=== PATIENT | female | born 1960 | race Caucasian/White ===

== ENCOUNTER 2020-01-13 23:42 | Emergency (ER) | payer MEDICAID ==
[2020-01-13 23:55] VITALS: BP 128/74; PULSE 84
--- NOTE | 2020-01-14 00:39 | EDM.PDOC ---
ED HPI GENERAL MEDICAL PROBLEM - General Chief Complaint: Lower Extremity Injury/Pain Stated Complaint: right foot Time Seen by Provider: 01/14/20 00:00 Source of Information: Reports: Patient History Limitations: Reports: No Limitations - History of Present Illness INITIAL COMMENTS - FREE TEXT/NARRATIVE: Patient presented to the ED because of a rt ankle/foot injury. She apparently missed a step and twisted her rt foot/ankle. she c//o 6/10 pain worse on ambulation. Treatments [employer]IST: Reports: Other (see below) Other Treatments [employer]GU[employer] SPECIALIST: ice right foot/ankle Pain Score (Numeric/FACES): 8 - Related Data Allergies Allergy/AdvReac Type Severity Reaction Status Date / Time minocycline [From Minocin] Allergy Rash Verified 01/13/20 23:51 Past Medical History HEENT History: Reports: Impaired Vision Other HEENT History: glasses Respiratory History: Reports: Asthma Genitourinary History: Reports: Acute Renal Failure Other Genitourinary History: Donated left kidney 9 yrs ago. Stage 3 kidney failure, appt in feb 2020. Musculoskeletal History: Reports: Arthritis Other Musculoskeletal History: fx toe, arthritis left foot/ bilat hands Endocrine/Metabolic History: Reports: Hypothyroidism - Infectious Disease History Infectious Disease History: Reports: None - Past Surgical History HEENT Surgical History: Reports: None Female Surgical History: Reports: None Endocrine Surgical History: Reports: None Musculoskeletal Surgical History: Reports: None Dermatological Surgical History: Reports: None Social & Family History - Tobacco Use Tobacco Use Status *Q: Never Tobacco User - Caffeine Use Caffeine Use: Reports: Soda - Alcohol Use Date of Last Drink: 01/22/07 - Recreational Drug Use Recreational Drug Use: No Review of Systems - Review of Systems Review Of Systems: See Below Constitutional: Reports: No Symptoms Ears: Reports: No Symptoms Nose: Reports: No Symptoms Mouth/Throat: Reports: No Symptoms Respiratory: Reports: No Symptoms Cardiovascular: Reports: No Symptoms GI/Abdominal: Reports: No Symptoms Genitourinary: Reports: No Symptoms Musculoskeletal: Reports: Joint Pain, Joint Swelling Skin: Reports: No Symptoms ED EXAM, GENERAL - Physical Exam Exam: See Below Exam Limited By: No Limitations General Appearance: Alert, No Apparent Distress Ears: Normal External Exam, Normal Canal Nose: Normal Inspection, Normal Mucosa, No Blood Throat/Mouth: Normal Inspection, Normal Lips, Normal Teeth Head: Atraumatic, Normocephalic Neck: Normal Inspection, Supple, Non-Tender, Full Range of Motion Respiratory/Chest: No Respiratory Distress, Lungs Clear, Normal Breath Sounds Cardiovascular: Normal Peripheral Pulses, Regular Rate, Rhythm, No Edema, No Gallop GI/Abdominal: Normal Bowel Sounds, Soft, Non-Tender Back Exam: Normal Inspection, Full Range of Motion Extremities: Other (tenderness and swelling lateral aspect of the rt foot and mid ankle) Course - Vital Signs Text/Narrative:: xray RT foot/ankle-see result Last Recorded V/S: Last Vital Signs Temp 36.7 C 01/13/20 23:52 Pulse 84 01/13/20 23:52 Resp 20 01/13/20 23:52 BP 128/74 01/13/20 23:52 Pulse Ox 99 01/13/20 23:52 Departure - Departure Time of Disposition: 12:40 Disposition: Home, Self-Care 01 Condition: Good Clinical Impression: Ankle sprain, Foot sprain - Discharge Information Instructions: Ankle Sprain, [id number], Foot Sprain Referrals: PCP,None [Primary Care Provider] - Forms: ED Department Discharge Additional Instructions: please read discharge instructions on ankle sprain and foot sprain apply ice,elevate tylenol 1000 mg every 8 hours as needed for pain use your crutches at all times until your pain is gone we will call you if there is any change on the xray reading Sepsis Event Note (ED) - Evaluation Sepsis Screening Result: No Definite Risk
== END 2020-01-14 01:05 | disposition home or self-care (01) ==
LOC: FB.ED 23:42
DX: S93.401A Sprain of unspecified ligament of right ankle, initial encounter (principal); S93.601A Unspecified sprain of right foot, initial encounter; J45.909 Unspecified asthma, uncomplicated; Z88.1 Allergy status to other antibiotic agents; X50.1XXA Overexertion from prolonged static or awkward postures, initial encounter
CPT/HCPCS: 73610-RT; 73630-RT; 99282; 99283-25

== ENCOUNTER 2021-02-10 19:25 | Emergency (ER) | payer MEDICAID ==
[2021-02-10] MEDS: Sodium Chloride 0.9% 10 ML Syringe FLUSH PRN ×2 (19:46→21:06)
[2021-02-10] MEDS ORDERED: methylPREDNISolone Sodium Succinate 125 MG/2 ML SDV IM STA (20:46)
[2021-02-10] MEDS ORDERED: Albuterol/Ipratropium 3.0-0.5 MG/3 ML Neb Soln NEB STA (20:46)
[2021-02-10] MEDS ORDERED: methylPREDNISolone Sodium Succinate 125 MG/2 ML SDV IVPUSH STA (21:01)
[2021-02-10] MEDS ORDERED: Codeine/guaiFENesin 10-100 MG/5 ML Syrup 5 ML Cup PO STA (21:43)
[2021-02-10] MEDS ORDERED: Azithromycin 500 MG Tab PO STA (21:43)
[2021-02-10 21:44] LABS: CORONAVIRUS COVID-19 NAA NEGATIVE (NEGATIVE)
[2021-02-10] MEDS ORDERED: Oseltamivir 75 MG Cap PO STA (21:48)
--- NOTE | 2021-02-10 21:55 | EDM.PDOC ---
ED HPI GENERAL MEDICAL PROBLEM - General Chief Complaint: General Stated Complaint: CHEST PAINS, COUGH, BACK PAIN Time Seen by Provider: 02/10/21 19:59 Source of Information: Reports: Patient, Family History Limitations: Reports: No Limitations - History of Present Illness INITIAL COMMENTS - FREE TEXT/NARRATIVE: Patient presented to the ED because of coughing, dyspnea malaise,headache for 2 days. There is no fever but has chills. No N/V/D. She was seen at the [facility] today and was sent to the ED for evaluation because of an elevated creatinine of 1.3 Chest Pain Score (Numeric/FACES): 2 - Related Data Allergies Allergy/AdvReac Type Severity Reaction Status Date / Time minocycline [From Minocin] Allergy Rash Verified 02/10/21 20:37 Home Meds: Home Meds Azithromycin [Zithromax] 500 mg PO DAILY #5 tab 02/10/21 [Rx] Levothyroxine Sodium [Synthroid] 25 mcg PO ACBREAKFAST 02/10/21 [History] Montelukast [Singulair] 10 mg PO DAILY 02/10/21 [History] Oseltamivir [Tamiflu] 75 mg PO BID #10 cap 02/10/21 [Rx] Pravastatin [Pravachol] 40 mg PO DAILY 02/10/21 [History] predniSONE [Prednisone] 40 mg PO BID #10 tablet 02/10/21 [Rx] Past Medical History HEENT History: Reports: Impaired Vision Other HEENT History: glasses Respiratory History: Reports: Asthma Genitourinary History: Reports: Acute Renal Failure Other Genitourinary History: Donated left kidney 9 yrs ago. Stage 3 kidney failure, appt in feb 2020. Musculoskeletal History: Reports: Arthritis Other Musculoskeletal History: fx toe, arthritis left foot/ bilat hands Endocrine/Metabolic History: Reports: Hypothyroidism - Infectious Disease History Infectious Disease History: Reports: None - Past Surgical History HEENT Surgical History: Reports: None Female Surgical History: Reports: None Endocrine Surgical History: Reports: None Musculoskeletal Surgical History: Reports: None Dermatological Surgical History: Reports: None Social & Family History - Tobacco Use Tobacco Use Status *Q: Unknown Ever Used Tobacco - Caffeine Use Caffeine Use: Reports: Coffee ED ROS GENERAL - Review of Systems Review Of Systems: See Below Constitutional: Reports: Chills, Malaise HEENT: Reports: No Symptoms Respiratory: Reports: Shortness of Breath, Cough Cardiovascular: Reports: No Symptoms Endocrine: Reports: No Symptoms GI/Abdominal: Reports: No Symptoms : Reports: No Symptoms Musculoskeletal: Reports: No Symptoms Skin: Reports: No Symptoms Neurological: Reports: No Symptoms Psychiatric: Reports: No Symptoms Hematologic/Lymphatic: Reports: No Symptoms ED EXAM, GENERAL - Physical Exam Exam: See Below Exam Limited By: No Limitations General Appearance: Alert, No Apparent Distress Eye Exam: Bilateral Eye: PERRL Ears: Normal External Exam, Normal Canal Nose: Normal Inspection, Normal Mucosa, No Blood Throat/Mouth: Normal Inspection, Normal Lips, Normal Teeth, Normal Oropharynx, Normal Voice Head: Atraumatic, Normocephalic Neck: Normal Inspection, Supple, Non-Tender, Full Range of Motion Respiratory/Chest: No Respiratory Distress, Rhonchi, Wheezing Cardiovascular: Normal Peripheral Pulses, Regular Rate, Rhythm, No Edema, No G allop, No JVD, No Murmur, No Rub GI/Abdominal: Normal Bowel Sounds, Soft, Non-Tender, No Organomegaly, No Distention, No Abnormal Bruit Back Exam: Normal Inspection, Full Range of Motion Extremities: Normal Inspection, Normal Range of Motion, Non-Tender, No Pedal Edema, Normal Capillary Refill Neurological: Alert, Oriented, CN II-XII Intact, Normal Cognition Psychiatric: Normal Affect, Normal Mood Skin Exam: Warm Course - Vital Signs Text/Narrative:: Lab result was reviewed and discussed with [atient Duoneb x1 Solumedrol 125 mg X 1 Robitussin AC 10 ml PO x1 Tamiflu 75 mg PO x1 Zithromax 500 mg PO x1 Last Recorded V/S: Last Vital Signs Temp 36.6 C 02/10/21 19:26 Pulse 77 02/10/21 21:20 Resp 16 02/10/21 21:20 BP 145/86 H 02/10/21 21:20 Pulse Ox 100 02/10/21 21:20 - Orders/Labs/Meds Orders: Active Orders 24 hr Category Date Time Status RT Aerosol Therapy [RC] ASDIRECTED Care 02/10/21 20:47 Active CXR [Chest 1V Frontal] [CR] Stat Exams 02/10/21 20:00 Taken Sodium Chloride 0.9% [Saline Flush] Med 02/10/21 20:00 Active 10 ml FLUSH ASDIRECTED PRN Saline Lock Insert [OM.PC] Routine Oth 02/10/21 20:00 Ordered EKG 12 Lead [EK] Routine Ther 02/10/21 20:00 Ordered Medication Orders Sodium Chloride (Sodium Chloride 0.9% 10 Ml Syringe) 10 ml FLUSH ASDIRECTED PRN PRN Reason: Keep Vein Open Last Admin: 02/10/21 21:06 Dose: 10 ml Documented by: Admin: 02/10/21 19:46 Dose: 10 ml Documented by: BELKIS Labs: Laboratory Tests 02/10/21 02/10/21 02/10/21 Range/Units 19:43 20:18 20:18 WBC 7.8 (3.0-10.3) x10-3/uL RBC 4.38 (3.60-5.20) x10(6)uL Hgb 13.4 (11.4-15.5) g/dL Hct 40.0 (34.2-48.2) % MCV 91.3 (76.7-100.5) fL MCH 30.7 (23.9-33.9) pg MCHC 33.6 (31.9-34.8) g/dL RDW 12.5 (12.3-16.5) % Plt Count 295 (151-488) x10(3)uL MPV 7.8 (7.1-12.4) fL Add Manual Diff Yes Neutrophils % (Manual) 80 (46-82) % Band Neutrophils % 3 (0-6) % Lymphocytes % (Manual) 10 L (13-37) % Monocytes % (Manual) 5 (4-12) % Eosinophils % (Manual) 2 (0-5) % Sodium 140 (135-145) mmol/L Potassium 3.8 (3.5-5.3) mmol/L Chloride 103 (100-110) mmol/L Carbon Dioxide 28 (21-32) mmol/L BUN 11 (7-18) mg/dL Creatinine 1.2 H (0.55-1.02) mg/dL Est Cr Clr Drug Dosing 48.48 mL/min Estimated GFR (MDRD) 46 L (>60) BUN/Creatinine Ratio 9.2 (9-20) Glucose 122 H (80-116) mg/dL Calcium 8.9 (8.6-10.2) mg/dL Total Bilirubin 0.7 (0.1-1.3) mg/dL AST 17 (5-25) IU/L ALT 31 (12-36) U/L Alkaline Phosphatase 64 (56-112) IU/L Troponin I (4.0-60.3) pg/mL NT-Pro-B Natriuret Pep (<=125) pg/mL Total Protein 7.8 (6.0-8.0) g/dL Albumin 4.1 (3.2-4.6) g/dL Globulin 3.7 g/dL Albumin/Globulin Ratio 1.1 Urine Color Yellow (YELLOW) Urine Appearance Slightly cloudy (CLEAR) Urine pH 5.0 (5.0-6.5) Ur Specific Odd 1.025 (1.010-1.025) Urine Protein Negative (NEGATIVE) mg/dL Urine Glucose (UA) Normal (NORMAL) mg/dL Urine Ketones Negative (NEGATIVE) mg/dL Urine Occult Blood Negative (NEGATIVE) Urine Nitrite Negative (NEGATIVE) Urine Bilirubin Negative (NEGATIVE) Urine Urobilinogen Normal (NEGATIVE) mg/dL Ur Leukocyte Esterase Negative (NEGATIVE) Urine RBC 0-5 (0-5) Urine WBC 0-5 (0-5) Ur Squamous Epith Cells Occasional (NS,R,O) Urine Bacteria Few H (NS) Influenza Type A RNA (NEGATIVE) Influenza Type B RNA (NEGATIVE) SARS-CoV-2 RNA (MELODY) (NEGATIVE) 02/10/21 02/10/21 02/10/21 Range/Units 20:18 20:18 21:01 WBC (3.0-10.3) x10-3/uL RBC (3.60-5.20) x10(6)uL Hgb (11.4-15.5) g/dL Hct (34.2-48.2) % MCV (76.7-100.5) fL MCH (23.9-33.9) pg MCHC (31.9-34.8) g/dL RDW (12.3-16.5) % Plt Count (151-488) x10(3)uL MPV (7.1-12.4) fL Add Manual Diff Neutrophils % (Manual) (46-82) % Band Neutrophils % (0-6) % Lymphocytes % (Manual) (13-37) % Monocytes % (Manual) (4-12) % Eosinophils % (Manual) (0-5) % Sodium (135-145) mmol/L Potassium (3.5-5.3) mmol/L Chloride (100-110) mmol/L Carbon Dioxide (21-32) mmol/L BUN (7-18) mg/dL Creatinine (0.55-1.02) mg/dL Est Cr Clr Drug Dosing mL/min Estimated GFR (MDRD) (>60) BUN/Creatinine Ratio (9-20) Glucose (80-116) mg/dL Calcium (8.6-10.2) mg/dL Total Bilirubin (0.1-1.3) mg/dL AST (5-25) IU/L ALT (12-36) U/L Alkaline Phosphatase (56-112) IU/L Troponin I < 4.0 L (4.0-60.3) pg/mL NT-Pro-B Natriuret Pep 82 (<=125) pg/mL Total Protein (6.0-8.0) g/dL Albumin (3.2-4.6) g/dL Globulin g/dL Albumin/Globulin Ratio Urine Color (YELLOW) Urine Appearance (CLEAR) Urine pH (5.0-6.5) Ur Specific Odd (1.010-1.025) Urine Protein (NEGATIVE) mg/dL Urine Glucose (UA) (NORMAL) mg/dL Urine Ketones (NEGATIVE) mg/dL Urine Occult Blood (NEGATIVE) Urine Nitrite (NEGATIVE) Urine Bilirubin (NEGATIVE) Urine Urobilinogen (NEGATIVE) mg/dL Ur Leukocyte Esterase (NEGATIVE) Urine RBC (0-5) Urine WBC (0-5) Ur Squamous Epith Cells (NS,R,O) Urine Bacteria (NS) Influenza Type A RNA Positive H (NEGATIVE) Influenza Type B RNA Negative (NEGATIVE) SARS-CoV-2 RNA (MELODY) Negative (NEGATIVE) Meds: Medications Generic Name Dose Route Start Last Admin Trade Name Freq PRN Reason Stop Dose Admin Sodium Chloride 10 ml 02/10/21 20:00 02/10/21 21:06 Sodium Chloride 0.9% 10 Ml Syringe FLUSH 10 ml ASDIRECTED PRN Administration Keep Vein Open Discontinued Medications Generic Name Dose Route Start Last Admin Trade Name Freq PRN Reason Stop Dose Admin Albuterol/Ipratropium 3 ml 02/10/21 20:46 02/10/21 20:59 Albuterol/Ipratropium 3.0-0.5 Mg/3 Ml Neb Soln NEB 02/10/21 20:47 3 ml NOW STA Administration Azithromycin 500 mg 02/10/21 21:43 Azithromycin 500 Mg Tab PO 02/10/21 21:44 NOW STA Guaifenesin/Codeine Phosphate 10 ml 02/10/21 21:43 Codeine/Guaifenesin 10-100 Mg/5 Ml Syrup 5 Ml Cup PO 02/10/21 21:44 NOW STA Methylprednisolone Sodium Succinate 125 mg 02/10/21 20:46 02/10/21 21:06 Methylprednisolone Sodium Succinate 125 Mg/2 Ml Sdv IM 02/10/21 20:47 Not Given NOW STA Methylprednisolone Sodium Succinate 125 mg 02/10/21 21:01 02/10/21 21:06 Methylprednisolone Sodium Succinate 125 Mg/2 Ml Sdv IVPUSH 02/10/21 21:02 125 mg NOW STA Administration Oseltamivir Phosphate 75 mg 02/10/21 21:48 Oseltamivir 75 Mg Cap PO 02/10/21 21:49 NOW STA Departure - Departure Time of Disposition: 22:00 Disposition: Home, Self-Care 01 Condition: Good Clinical Impression: Novel influenza A respiratory infection, Asthma exacerbation - Discharge Information Prescriptions: predniSONE [Prednisone] 40 mg PO BID #10 tablet Oseltamivir [Tamiflu] 75 mg PO BID #10 cap Azithromycin [Zithromax] 500 mg PO DAILY #5 tab Instructions: Influenza, Adult, [id number], Asthma, Adult, [id number] Referrals: PCP,None [Primary Care Provider] - Additional Instructions: Please read discharge instructions on Asthma flare up and Influenza A Drink 2-3 liters of water daily Tamiflu 75 mg twice daily for 5 days Prednisone 40 mg daily for 5 days Zithromax 500 mg daily for 5 days Use you inhalers as prescribed by your doctor Follow up as needed Sepsis Event Note (ED) - Evaluation Sepsis Screening Result: No Definite Risk - Focused Exam Vital Signs: Vital Signs Temp Pulse Resp BP Pulse Ox 02/10/21 21:20 77 16 145/86 H 100 02/10/21 20:59 78 02/10/21 20:23 77 16 153/93 H 97 02/10/21 19:26 36.6 C 83 18 150/76 H 98 - My Orders Last 24 Hours: My Active Orders 02/10/21 20:00 CXR [Chest 1V Frontal] [CR] Stat Sodium Chloride 0.9% [Saline Flush] 10 ml FLUSH ASDIRECTED PRN Saline Lock Insert [OM.PC] Routine EKG 12 Lead [EK] Routine 02/10/21 20:47 RT Aerosol Therapy [RC] ASDIRECTED - Assessment/Plan Last 24 Hours: My Active Orders 02/10/21 20:00 CXR [Chest 1V Frontal] [CR] Stat Sodium Chloride 0.9% [Saline Flush] 10 ml FLUSH ASDIRECTED PRN Saline Lock Insert [OM.PC] Routine EKG 12 Lead [EK] Routine 02/10/21 20:47 RT Aerosol Therapy [RC] ASDIRECTED
--- NOTE | 2021-02-10 22:07 | PCM.EKG ---
#1 Interpretation EKG Date: 02/10/21 Time: 19:31 Rhythm: NSR Rate (Beats/Min): 78 [place]: Normal P-Wave: Present QRS: Normal ST-T: Normal QT: Normal FL/PQ Interval: 78 Comparison: NA - No Prior EKG EKG Interpretation Comments: NSR
[2021-02-10 22:32] VITALS: BP 154/91; PULSE 73
--- NOTE | 2021-02-11 10:55 | CR ---
INDICATION: Dyspnea. CHEST, ONE VIEW: AP portable upright view of the chest, 02/10/21 - no comparisons. The heart did not appear enlarged. Mediastinum was essentially unremarkable. Overlying EKG leads are noted. A definite active infiltrate or effusion was not identified. However, there is moderately extensive bronchial wall cuffing in the lower lung avelar, which may represent active peribronchial disease and/or fibrosis and should be correlated clinically. MTDD
== END 2021-02-10 22:25 | disposition home or self-care (01) ==
LOC: FB.ED 19:25
DX: J45.901 Unspecified asthma with (acute) exacerbation (principal); J10.1 Influenza due to other identified influenza virus with other respiratory manifestations; E03.9 Hypothyroidism, unspecified; Z88.1 Allergy status to other antibiotic agents; Z79.899 Other long term (current) drug therapy; Z20.822 Contact with and (suspected) exposure to COVID-19
CPT/HCPCS: 0240U; 36415; 71045; 80053; 81001; 83880; 84484; 85025; 93005; 94640; 96374; 99285; A9270; J2930; J7620-GY

== ENCOUNTER 2021-07-21 19:25 | Emergency (ER) | payer MEDICAID ==
[2021-07-21 20:07] VITALS: BP 119/61; PULSE 61
== END 2021-07-21 20:05 | disposition home or self-care (01) ==
LOC: FB.ED 19:25
DX: H53.9 Unspecified visual disturbance (principal); Z79.899 Other long term (current) drug therapy; Z88.1 Allergy status to other antibiotic agents
CPT/HCPCS: 99281; 99283

== ENCOUNTER 2022-10-02 21:26 | Emergency (ER) | payer MEDICARE, MEDICAID ==
[2022-10-03 03:12] VITALS: BP 142/60; PULSE 62
== END 2022-10-03 00:22 | disposition home or self-care (01) ==
LOC: FB.ED 21:26
DX: S09.90XA Unspecified injury of head, initial encounter (principal); S62.626A Displaced fracture of middle phalanx of right little finger, initial encounter for closed fracture; S16.1XXA Strain of muscle, fascia and tendon at neck level, initial encounter; I10 Essential (primary) hypertension; J45.909 Unspecified asthma, uncomplicated; M19.90 Unspecified osteoarthritis, unspecified site; E03.9 Hypothyroidism, unspecified; Z88.1 Allergy status to other antibiotic agents; Z79.899 Other long term (current) drug therapy; W01.0XXA Fall on same level from slipping, tripping and stumbling without subsequent striking against object, initial encounter; Y93.01 Activity, walking, marching and hiking
CPT/HCPCS: 70450; 72125; 73140-F9; 73562-RT; 99284